=== PATIENT | female | born 1970 | race Caucasian/White ===

== ENCOUNTER 2018-03-14 00:20 | Emergency (ER) | payer OTHER ==
[2018-03-14] MEDS: ONDANSETRON 4 MG INJ IV (01:29)
[2018-03-14] MEDS: MECLIZINE 12.5 MG TAB PO (01:32)
[2018-03-14] MEDS: morphine 4 MG/ML VIAL IV (01:33)
[2018-03-14 02:07] LABS: ADD MAN DIFF? NO
[2018-03-14 02:08] LABS: WHITE BLOOD COUNT 14.9 10^3/ul (4.8-10.8)
[2018-03-14 02:08] LABS: BASOPHIL # 0.1 10^3/ul (0.0-0.1); BASOPHILS % 0.4 % (0.0-2.0); EOSINOPHILS # 0.1 10^3/ul (0.0-0.5); EOSINOPHILS % 0.5 % (0.0-7.0); HEMATOCRIT 34.6 % (37.0-47.0); HEMOGLOBIN 10.5 g/dl (12.0-16.0); LYMPHOCYTES # 1.5 10^3/ul (0.8-2.9); LYMPHOCYTES % 9.7 % (15.0-51.0); MEAN CORPUSCULAR HEMOGLOBIN 22.5 pg (29.0-33.0); MEAN CORPUSCULAR HGB CONC 30.3 g/dl (32.0-37.0); MEAN CORPUSCULAR VOLUME 74.2 fl (82.0-101.0); MEAN PLATELET VOLUME 10.9 fl (7.4-10.4); MONOCYTE # 0.9 10^3/ul (0.3-0.9); MONOCYTES % 5.8 % (0.0-11.0); NEUTROPHIL # 12.4 10^3/ul (1.6-7.5); NEUTROPHILS % 83.1 % (39.0-77.0); PLATELET COUNT 253 10^3/UL (140-415); RED BLOOD COUNT 4.66 10^6/ul (4.20-5.40)
[2018-03-14] MEDS: hydrALAzine 20 MG INJ IV (02:27)
[2018-03-14 02:31] LABS: ALANINE AMINOTRANSFERASE 32 IU/L (13-69); ALBUMIN 4.7 g/dl (3.3-4.9); ALBUMIN/GLOBULIN RATIO 2.04; ALKALINE PHOSPHATASE 55 IU/L (42-121); ANION GAP 14 (5-13); ASPARTATE AMINO TRANSFERASE 24 IU/L (15-46); BILIRUBIN,INDIRECT 0.2 mg/dl (0-1.1); BILIRUBIN,TOTAL 0.2 mg/dl (0.2-1.3); BLOOD UREA NITROGEN 21 mg/dl (7-20); CALCIUM 9.7 mg/dl (8.4-10.2); CARBON DIOXIDE 26 mmol/L (21-31); CHLORIDE 103 mmol/L (97-110); CREATININE 0.89 mg/dl (0.44-1.00); Estimated GFR > 60 mL/min (>60); GLUCOSE 146 mg/dl (70-220); LIPASE 45 U/L (23-300); POTASSIUM 3.1 mmol/L (3.5-5.1); SODIUM 143 mmol/L (135-144)
[2018-03-14 02:43] LABS: TROPONIN-I < 0.012 ng/ml (0.000-0.120)
[2018-03-14] MEDS: DILTIAZEM 25 MG INJ IV (03:18)
== END 2018-03-14 04:00 | disposition home or self-care (01) ==
LOC: E/R 00:20
DX: R42 Dizziness and giddiness (principal); R40.2142 Coma scale, eyes open, spontaneous, at arrival to emergency department; R40.2252 Coma scale, best verbal response, oriented, at arrival to emergency department; R40.2362 Coma scale, best motor response, obeys commands, at arrival to emergency department; I10 Essential (primary) hypertension
CPT/HCPCS: 36415; 70450; 71045; 80053; 83690; 84484; 85025; 93005; 96374; 96375; 99285-25